=== PATIENT | female | born 1980 | race Caucasian/White ===

== ENCOUNTER 2016-12-10 13:36 | Emergency (ER) | payer MEDICARE, MEDICAID ==
--- NOTE | ~2016-12-10 | ER ---
PATIENT'S NAME: HUSAM GIVENS [facility] AGE: 36 Y [address] ROOM: [place] [address] LOCATION: [facility] ADMIT DATE: 12/10/2016 ER/Outpatient Report DISCHARGE DATE: 12/10/2016 FAMILY PHYSICIAN: Ermelinda Gerber MD ATTENDING PHYSICIAN: Liberty Calhoun Time of Arrival: 1336 hours. Time of Evaluation: 1345 hours. IDENTIFICATION: A 36-year-old female. CHIEF COMPLAINT: Vomiting and dizziness. HISTORY OF PRESENT ILLNESS: The patient is a 36-year-old female, who woke up this morning with dizziness, which she does describe as vertigo, nausea, and vomiting. No fever or chills. She has had recent cold symptoms with cough and runny nose, but those symptoms are improving. No ill contacts. She recently had a baby 4 months ago, but is no longer . ALLERGIES: LEVAQUIN. CURRENT MEDICATIONS: vitamins. MEDICAL PROBLEMS: Denies. She is a G3, P3. CURRENT MEDICATIONS: 1. vitamin. 2. Depo-Provera. REVIEW OF SYSTEMS: All systems reviewed and negative other than what is noted in the HPI. The patient does have some burning chest pain from vomiting. No cough or shortness of breath. She has had URI and her cough is improving. SOCIAL HISTORY: The patient is . Has 3 children. Lives here in [place]. Tobacco use, denies. Alcohol use, denies. Drug use, denies. PHYSICAL EXAMINATION: PATIENT'S NAME: ELIE GIVENSA Fern [facility] AGE: 36 Y [address] ROOM: [place] [address] LOCATION: [facility] ADMIT DATE: 12/10/2016 ER/Outpatient Report DISCHARGE DATE: 12/10/2016 FAMILY PHYSICIAN: Ermelinda Gerber MD ATTENDING PHYSICIAN: Liberty Calhoun VITAL SIGNS: Blood pressure 165/77, pulse 96, respirations 20, temperature 95.3, and saturations 98%. HEENT: Head: Normocephalic and atraumatic. Ears: TMs translucent both ears. Eyes: Pupils equal and reactive to light and accommodation. Extraocular movements intact. Slight horizontal nystagmus. Nose: Mucosa erythematous, congested. Clear drainage. Mouth: No lesions. Pharynx benign. NECK: Supple. No lymphadenopathy. No nuchal rigidity. LUNGS: Clear to auscultation. HEART: Regular rate and rhythm. No murmur, rub, or gallop. ABDOMEN: Soft, nondistended, and nontender. SKIN: [place], warm, and dry. No lesions or rashes noted. NEURO: No focal deficit. LABORATORY DATA AND X-RAYS: EKG showed sinus rhythm at 81 beats per minute, no acute ST elevation or depression, no prior EKG available for comparison. HCG less than 1. Sodium 142, potassium 4.3, chloride 111, CO2 of 20, BUN 14, creatinine 0.7, blood sugar 129, liver enzymes normal, magnesium 1.9, CK 119, CK-MB 0.7, and troponin I less than 0.010. Hemoglobin 14, hematocrit 42.3, platelets 316, and white count 16.1. INR 0.98. EMERGENCY DEPARTMENT COURSE: An IV was initiated. The patient was given 1 L of normal saline; 4 mg of Zofran, repeated once; and 12.5 mg of meclizine. The patient's symptoms were improved, although she still did have a little bit of dizziness and nausea, but overall better. IMPRESSION: Vestibular neuronitis. PLAN: Clear liquids, small amounts at frequent intervals. Advance diet as tolerated. Zofran 4 mg q.6 hours p.r.n. for nausea, dispensed 6 with 0 refills. Meclizine 25 mg 1/2 tablet q.8 hours p.r.n. for dizziness, dispensed 8 with 0 refills. No work for 3 days. Okay to return on 12/13/2016. Follow up with her primary care physician, Dr. Gerber, next week. Follow up sooner if any problems or concerns. The patient and her understand and agree, and all questions have been answered. LIBERTY CALHOUN MD PATIENT'S NAME: HUSAM GIVENS [facility] AGE: 36 Y [address] ROOM: [place] [address] LOCATION: ED ADMIT DATE: 12/10/2016 ER/Outpatient Report DISCHARGE DATE: 12/10/2016 FAMILY PHYSICIAN: Ermelinda Gerber MD ATTENDING PHYSICIAN: Liberty Calhoun/avery /[id number] d: 12/10/16 2331 t: 12/14/16 0648, OUTPATIENT REPORT
[~2016-12-10 13:36] MED LIST: APNO TOP; MOTRIN800 MG PO; PERCOCET 5-3251 EACH PO; PRENATAL 1+1)(P1 TAB PO
[2016-12-10 14:51] LABS: BASOPHIL % 0.2 %; EOSINOPHIL # 0.1 K/uL (0.0-0.5); EOSINOPHIL % 0.4 %; HEMATOCRIT 42.3 % (33.0-46.0); IMMATURE GRANULOCYTE # 0.1 K/uL (0.0-0.3); IMMATURE GRANULOCYTE % 0.4 %; LYMPHOCYTE # 1.5 K/uL (0.8-4.0); LYMPHOCYTE % 9.1 %; MCH 28.7 pg (27.0-34.0); MCHC 33.1 gm/dL (32.0-36.5); MCV 86.9 fl (83.0-98.0); MONOCYTE # 0.5 K/uL (0.0-1.0); MONOCYTE % 3.2 %; MPV 9.7 fl (9.4-12.4); NEUTROPHIL % 86.7 %; NRBC % 0 /100WBC (0-0.00); PLATELET COUNT 316 K/uL (150-450); RDW-CV 13.4 % (11.9-14.6)
[2016-12-10 14:55] LABS: RBC 4.87 M/uL (3.50-5.50); WBC 16.1 K/uL (4.0-11.0)
[2016-12-10 15:03] LABS: INR - (THERAPEUTIC) 0.98 (0.92-1.07); PROTIME 10.3 SECONDS (9.8-11.4); PTT 25 SECONDS (25-32)
[2016-12-10 15:11] LABS: ALK PHOS 116 IU/L (33-138); ALT 31 IU/L (12-78); ANION GAP 15.3 (10.0-19.0); AST 19 IU/L (10-40); BLOOD UREA NITROGEN 14 mg/dL (6-24); CALCIUM 9.4 mg/dL (8.5-10.5); CHLORIDE 111 mMol/L (96-110); CO2 20 mMol/L (22-32); CPK 119 IU/L (21-215); CREATININE 0.7 mg/dL (0.5-1.1); ESTIMATED GFR (MDRD EQUATION) > 60; MAGNESIUM 1.9 mg/dL (1.8-2.6); POTASSIUM 4.3 mMol/L (3.7-5.1); SODIUM 142 mMol/L (135-145); TOTAL BILIRUBIN 0.3 mg/dL (0.0-1.5); TOTAL PROTEIN 7.9 g/dL (6.0-8.4)
== END 2016-12-10 16:40 | disposition disaster alternative care site (69) ==
LOC: GMED 13:36
PROVIDERS: Family Medicine
DX: H81.20 Vestibular neuronitis, unspecified ear (principal); Z88.8 Allergy status to other drugs, medicaments and biological substances
CPT/HCPCS: J2405; J7030